=== PATIENT | male | born 1950 | race Asian ===

== ENCOUNTER 2020-09-29 09:33 | Emergency (ER) | payer MEDICARE, OTHER ==
[~2020-09-29] VITALS: Ht 162.6 cm; Wt 65.8 kg
[2020-09-29 09:55] VITALS: BP 98/59
[2020-09-29] MEDS ORDERED: KETOROLAC TROMETHAMINE 15 MG/ML VIAL ONE (10:52)
[2020-09-29] MEDS ORDERED: KETOROLAC TROMETHAMINE INJ 30 MG/ML VIAL IM ONE (11:00)
--- NOTE | 2020-09-29 11:41 | NUR ---
Patient discharged to home in stable condition. Written and verbal after care instructions given. Patient verbalizes understanding of instruction.
--- NOTE | 2020-09-30 14:04 | NUR ---
INFORMED PATIENT COVID POSITIVE RESULT. INSTRUCTED TO QUARANTINE X 14 DAYS.
== END 2020-09-29 11:41 | disposition home or self-care (01) ==
LOC: ER 09:43
DX: U07.1 COVID-19 (principal); R43.9 Unspecified disturbances of smell and taste; R51.9 Headache, unspecified; I10 Essential (primary) hypertension
CPT/HCPCS: 96372; 99283; J1885; C9803; U0003